=== PATIENT | male | born 1950 | race Caucasian/White ===

== ENCOUNTER 2023-02-07 10:54 | Outpatient (RCR) | payer MEDICARE, BC ==
[~2023-02-07] VITALS: Ht 188 cm; Wt 142.9 kg
== END 2023-03-07 | disposition home or self-care (01) ==
LOC: CARDREHAB
DX: Z48.812 Encounter for surgical aftercare following surgery on the circulatory system (principal); Z95.5 Presence of coronary angioplasty implant and graft

== ENCOUNTER 2023-03-09 10:51 | Outpatient (RCR) | payer MEDICARE, BC | END 2023-04-05 | disposition home or self-care (01) | LOC: CARDREHAB | DX: Z48.812 Encounter for surgical aftercare following surgery on the circulatory system (principal); Z95.5 Presence of coronary angioplasty implant and graft ==

== ENCOUNTER 2023-12-24 09:53 | Outpatient (RCR) | payer MEDICARE, BC | END 2024-01-05 | LOC: CARDREHAB | DX: I20.89 Other forms of angina pectoris (principal) ==

== ENCOUNTER 2024-01-07 08:36 | Outpatient (RCR) | payer MEDICARE, BC | END 2024-02-05 | disposition home or self-care (01) | LOC: CARDREHAB | DX: I20.89 Other forms of angina pectoris (principal) ==

== ENCOUNTER 2024-02-07 07:56 | Outpatient (RCR) | payer MEDICARE, BC | END 2024-03-07 | disposition home or self-care (01) | LOC: CARDREHAB | DX: I20.89 Other forms of angina pectoris (principal) ==